=== PATIENT | male | born 1995 | race Caucasian/White ===

== ENCOUNTER 2018-10-09 16:16 | Emergency (ER) | payer OTHER ==
[2018-10-09] MEDS ORDERED: PROPARACAINE HCL OPTH 15ML BTL OPTH ONE (16:33)
--- NOTE | 2018-10-09 16:53 | Emergency Department Record ---
History of Present Illness - General Chief complaint: Eye Problem Stated complaint: GLASS IN EYE Time Seen by Provider: 10/09/18 16:33 Source: Patient Mode of Arrival: Ambulatory Limitations: No limitations - History of Present Illness Initial comments: The patient is here due to having a possible FB in the R eye. He broke a vase this AM and felt that he may have had a piece of it hit his R eye. He did have mild pain to the R eye but no blurred vision. The patient did flush his eye out at that time in the shower and it felt better after. Since the shower he has had no pain to the R eye. chief complaint: Eye pain, Eye injury Onset/Timin -: Hour(s) Onset Description: Sudden Location: Right eye Place: Home If Injury: None Eye Symptoms: Burning, Blurry vision, Itching Severity: Moderate Severity scale (1-10): 4 If Pain, Quality: Aching Consistency: Constant - Related Data Visual acuity (L) = 20/: 20 Visual acuity (R) = 20/: 20 With correction: No Patient Tetanus UTD (within 5 yrs): Yes (less than 4 years) Home Medications Medication Instructions Recorded Confirmed Last Taken Amitriptyline HCl 75 mg PO QPM 10/09/18 10/09/18 1 Day Ago ~10/08/18 Loratadine 10 mg PO DAILY 10/09/18 10/09/18 1 Day Ago ~10/08/18 Omeprazole [Prilosec] 20 mg PO DAILY 10/09/18 10/09/18 1 Day Ago ~10/08/18 Tizanidine HCl 4 mg PO QPM 10/09/18 10/09/18 1 Day Ago ~10/08/18 Tramadol HCl [Ultram] 50 mg PO Q8H PRN 10/09/18 10/09/18 Unknown Previous Rx's Medication Instructions Recorded Erythromycin Base [Erythromycin 1 apply AFFEYE QID #1 tube 10/09/18 OPTH Ointment] Allergies Allergy/AdvReac Type Severity Reaction Status Date / Time No Known Drug Allergies Allergy Verified 10/09/18 16:28 Travel Screening - Travel/Exposure Within Last 30 Days Have you traveled within the last 30 days?: No - Travel/Exposure Within Last Year Have you traveled outside the [place] in the last year?: No - Additonal Travel Details Have you been exposed to anyone with a communicable illness?: No - Travel Symptoms Symptom Screening: None Review of Systems Constitutional: Denies: Chills, Fever Eyes: Reports: Eye pain. Denies: Eye discharge ENT: Denies: Congestion Respiratory: Denies: Cough Past Medical History - SOCIAL HISTORY Smoking Status: Never smoker Alcohol Use: None Drug Use: None - RESPIRATORY Hx Respiratory Disorders: No - CARDIOVASCULAR Hx Cardio Disorders: No - NEURO Hx Neuro Disorders: No - GI Hx GI Disorders: No - Hx Genitourinary Disorders: No - ENDOCRINE Hx Endocrine Disorders: No - MUSCULOSKELETAL Comment:: from [employer] - PSYCH Hx Psych Problems: No - HEMATOLOGY/ONCOLOGY Hx Hematology/Oncology Disorders: No Family Medical History Any Significant Family History?: Yes Physical Exam - General General Appearance: Alert, Oriented x3, Cooperative, No acute distress - Head Head exam: Atraumatic, Normocephalic, Normal inspection - Eye Eye exam: Normal appearance, PERRL, EOMI, Other (There is a very small abrasion over the 12:00 are of the R cornea.). negative: Conjunctival injection, Periorbital swelling, Periorbital tenderness Visual acuity (L) = 20/: 20 Visual acuity (R) = 20/: 20 With correction: No Image of Eyes: 1 - Very superficial abrasion. Course Vital Signs 10/09/18 16:19 Temperature 97.3 F L Pulse Rate 96 H Respiratory 18 Rate Blood Pressure 137/92 Pulse Ox 98 - Reevaluation(s) Reevaluation #1: I did discuss the very small abrasion with the patient and the need for Emycin ointment for 3 days. 10/09/18 16:50 Disposition Disposition: Discharge Clinical Impression: Corneal abrasion Qualifiers: Encounter type: initial encounter Laterality: right Qualified Code(s): S05.01XA - Injury of conjunctiva and corneal abrasion without foreign body, right eye, initial encounter Disposition: Home, Self-Care Condition: (2) Stable Instructions: Corneal Abrasion (ED) Additional Instructions: Please use the eye ointment for 3 days. Please see an eye doctor if not better in 3 days and return to the ER for any worsening symptoms. Prescriptions: Erythromycin Base [Erythromycin OPTH Ointment] 1 apply PAULAE QID #1 tube Time of Disposition: 16:52 Quality - Quality Measures Quality Measures: N/A - Blood Pressure Screening View Details: Yes Does Patient Have Any of the Following: No Blood Pressure Classification: Hypertensive Reading Systolic Measurement: 137 Diastolic Measurement: 92 Screening for High Blood Pressure: < First Hypertensive BP, F/U Documented > [ [id number]] First Hypertensive Follow-up Interventions: Referral to alternative/primary care provider.
== END 2018-10-09 16:56 | disposition home or self-care (01) ==
LOC: ER 16:16
DX: S05.01XA Injury of conjunctiva and corneal abrasion without foreign body, right eye, initial encounter (principal); W22.8XXA Striking against or struck by other objects, initial encounter; Y92.009 Unspecified place in unspecified non-institutional (private) residence as the place of occurrence of the external cause
CPT/HCPCS: 99282